=== PATIENT | female | born 1995 | race Caucasian/White ===

== ENCOUNTER 2017-08-19 08:49 | Emergency (ER) | payer OTHER ==
[2017-08-19] MEDS ORDERED: Sodium Chloride 0.9% 10 ML Syringe FLUSH PRN (08:54)
--- NOTE | 2017-08-19 09:28 | EDM.PDOC ---
ED HPI GENERAL MEDICAL PROBLEM - General Chief Complaint: Abdominal Pain Stated Complaint: abdominal pain Time Seen by Provider: 08/19/17 09:09 Source of Information: Reports: Patient History Limitations: Reports: No Limitations - History of Present Illness INITIAL COMMENTS - FREE TEXT/NARRATIVE: Sudden severe central lower abdominal pain. Brought in by private car. [place] fine when she woke up this morning. Pain hit suddenly. Had nausea, emesis. Cannot recall last menstrual cycle. Thinks it was 3 or 4 weeks ago. No previous episodes of similar pain. Patient is healthy overall. Takes PRN OTC allergy medicine at time. Pain did not radiate anywhere. Nothing specifically makes it better or worse. No UTI complaints. ROS otherwise negative. umbilical Pain Score (Numeric/FACES): 5 - Related Data Allergies Allergy/AdvReac Type Severity Reaction Status Date / Time No Known Allergies Allergy Verified 08/19/17 09:13 Home Meds: Home Meds Non-Formulary Medication [NF Drug] 1 tab PO DAILY PRN 08/19/17 [History] Past Medical History - Past Health History Medical/Surgical History: Denies Medical/Surgical History Social & Family History - Family History Family Medical History: Noncontributory - Tobacco Use Smoking Status *Q: Never Smoker - Alcohol Use Alcohol Use History: No - Recreational Drug Use Recreational Drug Use: No Drug Use in Last 12 Months: No - Sexual History Sexual History: Reports: None ED ROS GENERAL - Review of Systems Review Of Systems: See Below Constitutional: Reports: No Symptoms HEENT: Reports: No Symptoms Respiratory: Reports: No Symptoms Cardiovascular: Reports: No Symptoms GI/Abdominal: Reports: Abdominal Pain, Nausea, Vomiting. Denies: Black Stool, Bloody Stool, Constipation, Diarrhea, Decreased Appetite : Reports: No Symptoms Musculoskeletal: Reports: No Symptoms Skin: Reports: No Symptoms Neurological: Reports: No Symptoms Psychiatric: Reports: No Symptoms ED EXAM, GI/ABD - Physical Exam Exam: See Below Exam Limited By: No Limitations General Appearance: Alert, WD/WN, No Apparent Distress Eyes: Bilateral: Normal Appearance, EOMI Ears: Normal External Exam Nose: Normal Inspection Throat/Mouth: Normal Inspection, Normal Voice, No Airway Compromise Head: Atraumatic, Normocephalic Neck: Normal Inspection, Supple, Non-Tender, Full Range of Motion Respiratory/Chest: No Respiratory Distress, Lungs Clear, Normal Breath Sounds, No Accessory Muscle Use, Chest Non-Tender Cardiovascular: Normal Peripheral Pulses, Regular Rate, Rhythm, No Edema, No Murmur GI/Abdominal Exam: Normal Bowel Sounds, Soft, Non-Tender, No Organomegaly, No Distention, No Mass (Female) Exam: Deferred, Other (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 No: CVA Tenderness (L), CVA Tenderness (R), Decreased Range of Motion, Muscle Spasm, Paraspinal Tenderness, Vertebral Tenderness Extremities: Normal Inspection, Normal Range of Motion, Non-Tender, No Pedal Edema, Normal Capillary Refill Neurological: Alert, Oriented, Normal Cognition, Normal Gait, No Motor/Sensory Deficits Psychiatric: Normal Affect, Normal Mood Skin Exam: Warm, Dry, Intact, Normal Color Course - Vital Signs Last Recorded V/S: Last Vital Signs Temp 36.6 C 08/19/17 09:19 Pulse 65 08/19/17 09:19 Resp 18 08/19/17 09:19 BP 120/76 08/19/17 09:19 Pulse Ox 100 08/19/17 09:19 - Orders/Labs/Meds Orders: Active Orders 24 hr Category Date Time Status Abdomen 2V AP Flat Upright [CR] Stat Exams 08/19/17 09:51 Taken Sodium Chloride 0.9% [Normal Saline] 500 ml Med 08/19/17 10:00 Active IV .BOLUS Sodium Chloride 0.9% [Saline Flush] Med 08/19/17 08:54 Active 10 ml FLUSH ASDIRECTED PRN Saline Lock Insert [OM.PC] Routine Oth 08/19/17 08:54 Ordered Medication Orders Sodium Chloride (Normal Saline) 500 mls @ 999 mls/hr IV .BOLUS KIMBERLY Last Admin: 08/19/17 09:59 Dose: 999 mls/hr Sodium Chloride (Saline Flush) 10 ml FLUSH ASDIRECTED PRN PRN Reason: Keep Vein Open Last Admin: 08/19/17 09:59 Dose: 10 ml Labs: Laboratory Tests 08/19/17 08/19/17 08/19/17 Range/Units 09:12 09:12 09:12 WBC 7.4 7.5 (4.0-10.2) K/uL RBC 4.58 4.62 (3.77-5.09) M/uL Hgb 12.5 12.5 (11.7-15.5) g/dL Hct 38.3 38.6 (34.0-46.0) % MCV 83.6 L 83.5 L (84.0-98.0) fL MCH 27.3 L 27.1 L (28.2-33.3) pg MCHC 32.6 32.4 (31.7-36.0) g/dL RDW 14.2 H 14.1 (11.2-14.1) % Plt Count 205 217 (150-350) K/uL MPV 10.40 (7.00-11.50) fL Neut % (Auto) 56.3 (45.0-80.0) % Lymph % (Auto) 34.3 (10.0-50.0) % [place] % (Auto) 5.6 (2.0-14.0) % Eos % (Auto) 3.7 (0.0-5.0) % Baso % (Auto) 0.1 (0.0-2.0) % Neut # (Auto) 4.24 (1.40-7.00) K/uL Lymph # (Auto) 2.58 (0.50-3.50) K/uL [place] # (Auto) 0.42 (0.00-1.00) K/uL Eos # (Auto) 0.28 (0.00-0.50) K/uL Baso # (Auto) 0.01 (0.00-0.20) K/uL Sodium 140 (136-145) mmol/L Potassium 3.7 (3.5-5.1) mmol/L Chloride 106 (98-107) mmol/L Carbon Dioxide 25.3 (21.0-32.0) mmol/L BUN 11 (7-18) mg/dL Creatinine 0.68 (0.51-1.17) mg/dL Est Cr Clr Drug Dosing 119.95 mL/min Estimated GFR (MDRD) > 60 mL/min Glucose 112 H (74-106) mg/dL Calcium 8.8 (8.5-10.1) mg/dL Total Bilirubin 0.6 (0.2-1.0) mg/dL AST 17 (15-37) U/L ALT 23 (12-78) U/L Alkaline Phosphatase 61 (46-116) IU/L Total Protein 7.7 (6.4-8.2) g/dL Albumin 4.1 (3.4-5.0) g/dL Specimen Type Urine Color Urine Appearance Urine pH (5.0-9.0) Ur Specific [place] (1.005-1.030) Urine Protein (NEGATIVE) mg/dL Urine Glucose (UA) (NEGATIVE) mg/dL Urine Ketones (NEGATIVE) mg/dL Urine Occult Blood (NEGATIVE) Urine Nitrite (NEGATIVE) Urine Bilirubin (NEGATIVE) Urine Urobilinogen (0.2-1.0) E.U./dL Ur Leukocyte Esterase (NEGATIVE) Urine RBC /HPF Urine WBC /HPF Ur Epithelial Cells /LPF Urine Bacteria (NONE TO FEW) /HPF Urine HCG, Qual 08/19/17 08/19/17 Range/Units 11:38 11:38 WBC (4.0-10.2) K/uL RBC (3.77-5.09) M/uL Hgb (11.7-15.5) g/dL Hct (34.0-46.0) % MCV (84.0-98.0) fL MCH (28.2-33.3) pg MCHC (31.7-36.0) g/dL RDW (11.2-14.1) % Plt Count (150-350) K/uL MPV (7.00-11.50) fL Neut % (Auto) (45.0-80.0) % Lymph % (Auto) (10.0-50.0) % [place] % (Auto) (2.0-14.0) % Eos % (Auto) (0.0-5.0) % Baso % (Auto) (0.0-2.0) % Neut # (Auto) (1.40-7.00) K/uL Lymph # (Auto) (0.50-3.50) K/uL [place] # (Auto) (0.00-1.00) K/uL Eos # (Auto) (0.00-0.50) K/uL Baso # (Auto) (0.00-0.20) K/uL Sodium (136-145) mmol/L Potassium (3.5-5.1) mmol/L Chloride (98-107) mmol/L Carbon Dioxide (21.0-32.0) mmol/L BUN (7-18) mg/dL Creatinine (0.51-1.17) mg/dL Est Cr Clr Drug Dosing mL/min Estimated GFR (MDRD) mL/min Glucose (74-106) mg/dL Calcium (8.5-10.1) mg/dL Total Bilirubin (0.2-1.0) mg/dL AST (15-37) U/L ALT (12-78) U/L Alkaline Phosphatase (46-116) IU/L Total Protein (6.4-8.2) g/dL Albumin (3.4-5.0) g/dL Specimen Type Urinvoid Urine Color Yellow Urine Appearance Clear Urine pH 6.5 (5.0-9.0) Ur Specific [place] 1.015 (1.005-1.030) Urine Protein Negative (NEGATIVE) mg/dL Urine Glucose (UA) Negative (NEGATIVE) mg/dL Urine Ketones Negative (NEGATIVE) mg/dL Urine Occult Blood Trace-intact H (NEGATIVE) Urine Nitrite Negative (NEGATIVE) Urine Bilirubin Negative (NEGATIVE) Urine Urobilinogen 0.2 (0.2-1.0) E.U./dL Ur Leukocyte Esterase Negative (NEGATIVE) Urine RBC 0-5 /HPF Urine WBC 0-5 /HPF Ur Epithelial Cells Few /LPF Urine Bacteria Few (NONE TO FEW) /HPF Urine HCG, Qual Negative Meds: Medications Generic Name Dose Route Start Last Admin Trade Name Freq PRN Reason Stop Dose Admin Sodium Chloride 500 mls @ 999 mls/hr 08/19/17 10:00 08/19/17 09:59 Normal Saline IV 999 mls/hr .BOLUS KIMBERLY Administration Sodium Chloride 10 ml 08/19/17 08:54 08/19/17 09:59 Saline Flush FLUSH 10 ml ASDIRECTED PRN Administration Keep Vein Open Discontinued Medications Generic Name Dose Route Start Last Admin Trade Name Freq PRN Reason Stop Dose Admin Sodium Chloride 1,000 mls @ 999 mls/hr 08/19/17 11:03 Normal Saline IV 08/19/17 12:03 .BOLUS ONE - Radiology Interpretation Free Text/Narrative:: Abdominal flat/upright showed stool throughout colon but no changes suggestive of illeus/obstruction. No free air. No focal densities noted. - Re-Assessments/Exams Free Text/Narrative Re-Assessment/Exam: 08/19/17 12:17 CBC/Hcg/Chem/UA unremarkable. Patient in ER for prolonged time due to inability to void and provide UA. 500ml NS bolus given. Pain described as very severe when first noted. Accomanied by nausea/emesis. By the time she arrived to the ER it was improving. She declined pain medication. No further nausea. Xray unremarkable for acute abdominal findings. History and presentation suggestive of ruptured ovarian cyst. However cannot fully rule out other possible causes. Patient is completely pain-free now. Soft abdomen. OK to discharge home at this time. Numerous precautions discussed with patient prior to discharge. She is to return to the ER for re-evaluation if pain/symptoms return. Departure - Departure Time of Disposition: 12:09 Disposition: Home, Self-Care 01 Condition: Good Clinical Impression: Abdominal pain Qualifiers: Abdominal location: lower abdomen, unspecified Qualified Code(s): R10.30 - Lower abdominal pain, unspecified - Discharge Information Instructions: Ovarian Cyst, [id number] Referrals: PCP,None [Primary Care Provider] - Forms: ED Department Discharge Additional Instructions: Return to ER if pain returns. Watch for changes and new symptoms. Take it easy today as far as work load. Stay hydrated and drink plenty of water. - My Orders Last 24 Hours: My Active Orders 08/19/17 08:54 Sodium Chloride 0.9% [Saline Flush] 10 ml FLUSH ASDIRECTED PRN Saline Lock Insert [OM.PC] Routine 08/19/17 09:51 Abdomen 2V AP Flat Upright [CR] Stat 08/19/17 10:00 Sodium Chloride 0.9% [Normal Saline] 500 ml IV .BOLUS - Assessment/Plan Last 24 Hours: My Active Orders 08/19/17 08:54 Sodium Chloride 0.9% [Saline Flush] 10 ml FLUSH ASDIRECTED PRN Saline Lock Insert [OM.PC] Routine 08/19/17 09:51 Abdomen 2V AP Flat Upright [CR] Stat 08/19/17 10:00 Sodium Chloride 0.9% [Normal Saline] 500 ml IV .BOLUS
[2017-08-19 09:40] LABS: CHLORIDE,CL 106 mmol/L (98-107); SODIUM,NA 140 mmol/L (136-145)
[2017-08-19] MEDS ORDERED: Sodium Chloride 0.9% 500 ML IV SCH (10:00)
[2017-08-19] MEDS ORDERED: Sodium Chloride 0.9% 1,000 ML IV ONE (11:03)
== END 2017-08-19 12:30 | disposition home or self-care (01) ==
LOC: LL.ED 08:49
DX: R10.30 Lower abdominal pain, unspecified (principal); Z79.899 Other long term (current) drug therapy
CPT/HCPCS: 36415; 74020; 80053; 81001; 81025; 85025; 96360; 99284; J7040; J7050; 85027